=== PATIENT | male | born 1985 | race Caucasian/White ===

== ENCOUNTER 2021-03-14 13:30 | Emergency (ER) | payer SELFPAY ==
[2021-03-14] MEDS ORDERED: HYDROCODON-ACE1 EAC4 PO (14:19)
[2021-03-14] MEDS ORDERED: ANUSOL-HC25 MG PR (14:19)
[2021-03-14] MEDS ORDERED: COLACE100 MG PO (14:19)
== END 2021-03-14 14:25 | disposition home or self-care (01) ==
LOC: ER1 13:30
DX: K64.9 Unspecified hemorrhoids (principal); F17.200 Nicotine dependence, unspecified, uncomplicated
CPT/HCPCS: 99282